=== PATIENT | female | born 1950 | race Caucasian/White ===

== ENCOUNTER → 2024-07-07 11:00 | Outpatient (REF) | payer OTHER, SELFPAY | LOC: HWRCS 11:00 | PROVIDERS: ATTENDING PHYSICIAN Internal Medicine Cardiovascular Disease; FAMILY PHYSICIAN Internal Medicine | DX: I42.8 Other cardiomyopathies (principal); I44.7 Left bundle-branch block, unspecified; I50.32 Chronic diastolic (congestive) heart failure | CPT/HCPCS: 93306 ==

== ENCOUNTER → 2024-09-01 08:54 | Outpatient (REF) | payer OTHER, SELFPAY | LOC: HWWDC 08:54 | PROVIDERS: ATTENDING PHYSICIAN Internal Medicine | DX: Z12.31 Encounter for screening mammogram for malignant neoplasm of breast (principal) | CPT/HCPCS: 77063; 77067 ==

== ENCOUNTER → 2024-09-15 10:02 | Outpatient (REF) | payer OTHER, SELFPAY | LOC: WDC 10:02 | PROVIDERS: ATTENDING PHYSICIAN Internal Medicine | DX: R92.8 Other abnormal and inconclusive findings on diagnostic imaging of breast (principal) | CPT/HCPCS: 77061; 77065 ==

== ENCOUNTER → 2025-03-02 11:53 | Outpatient (REF) | payer OTHER, SELFPAY | LOC: WDC 11:53 | PROVIDERS: ATTENDING PHYSICIAN Internal Medicine | DX: R92.8 Other abnormal and inconclusive findings on diagnostic imaging of breast (principal) | CPT/HCPCS: 77061; 77065 ==

== ENCOUNTER 2025-07-14 17:58 | Inpatient (IN) | payer OTHER, SELFPAY ==
[2025-07-14] VITALS (8 sets, daily range): BP systolic 106–124; BP diastolic 64–89; BMI 27.8
[2025-07-14 15:09] LABS: Albumin 4.2 g/dl (3.5-5.0)
[2025-07-14 15:10] LABS: Hematocrit 43.4 % (37.0-47.0); Hemoglobin 15.0 g/dL (12.0-16.0); Mean Corp Hgb Conc. 34.6 g/dL (33.0-37.0); Mean Corpuscular Volume 84.3 fL (81.0-99.0); Nucleated Red Blood Cells % 0 %; Platelet Count 293 10^3/uL (130-400); Red Cell Dist. Width 12.6 % (11.5-14.5)
[2025-07-14 15:43] LABS: ALT (SGPT) 23 U/L (0-35); AST (SGOT) 28 U/L (14-36); Alkaline Phosphatase 90 U/L (38-126); Blood Urea Nitrogen 9 mg/dl (7-17); Calcium 9.1 mg/dl (8.4-10.2); Carbon Dioxide 25 mmol/L (22-30); Chloride 102 mmol/L (98-107); Glucose 135 mg/dl (70-99); Potassium 3.8 mmol/L (3.5-5.1); Sodium 133 mmol/L (135-145); Total Protein 7.0 g/dl (6.3-8.2); eGFR > 60.00
--- NOTE | 2025-07-14 15:44 | CON.CAR ---
Addendum entered and electronically signed by Doyle Garcia MD 07/14/25 16:51:
I saw and examined the patient.
The DAY CARE ATTENDANT or PA's note was reviewed and I agree with the note.
Comment: General: Well developed, well nourished in NAD.
Neck: Supple, no JVD, HJR, carotids +2 B/L, no bruits bilaterally.
Heart: Non displaced PMI, irregular in, no murmurs, No S3, S4, no rubs.
Lungs: Clear to auscultation bilaterally, no wheeze, rhonchi, rubs bilaterally,
normal expiratory phase.
Abdomen: Normal bowel sounds, soft, non-tender, non-distended.
Extremities: No clubbing, cyanosis or edema bilaterally.
Neuro: Grossly nonfocal, awake, alert and oriented x3.
Aneta is a history of nonischemic cardiomyopathy with ejection fraction 40 to 45%, status post Medtronic BiV ICD, PAF status post PVI in 2013, left bundle branch block, hypothyroidism, PMR, hyperlipidemia. She presents with palpitations and A-fib.
She had a 5-hour episode in March 2025 which was the first episode she had an of A-fib in years. She also had A-fib versus A. tach last evening which spontaneously resolved. She then had recurrence of A-fib and came to the ER. She has been
faithfully taking Pradaxa.
Will load with amiodarone. If remains in A-fib we will do cardioversion. Will consider redo ablation as outpt
Original Note:
Consultation
Consultation Request
Date/Time Consultation Performed: 07/14/25
Requesting Provider:
Performing Provider: Maria Antonia Sauceda PA-C for Dr. Garcia
Reason for Consultation: afib with RVR
Medical History
-
Chief Complaint: afib with RVR
History of Present Illness:
Patient is a 75 yo F with PMH of nonischemic cardiomyopathy, status post Medtronic BiV ICD with improvement in EF from 30 to 35% to 40 to 45%, paroxysmal atrial fibrillation status post PVI in 2013, left bundle branch block, hypothyroidism,
polymyalgia rheumatica, hyperlipidemia who presents to [facility] for evaluation of atrial fibrillation with RVR. She reportedly had a 5-hour episode of A-fib on 04/07/2025, which is the first episode of A-fib she has had in years. She was then noted on
device to have additional episode of A-fib versus A. tach last evening, which patient reports she did feel palpitations with, however then earlier this morning was back to normal. She then had recurrence of rapid rhythm this afternoon causing her
to come to the ER for further evaluation. She is chronically on Pradaxa.
PMH:
Nonischemic cardiomyopathy, EF 40 to 45%
History of Medtronic BiV ICD
Paroxysmal atrial fibrillation status post PVI 2013
Chronic anticoagulation with Pradaxa
Left bundle branch block, chronic
Hypothyroidism
Hyperlipidemia
PMR
Past Medical History
Past Medical History: Other (in HPI)
Social History
Tobacco: Non-Smoker
Alcohol: None
Personal:
Living: With Family
Employment: Retired
Family History
Family History: Adopted
Allergies / Home Medications
Allergy/AdvReac Type Severity Reaction Status Date / Time
Mfwptcx-IQS-CyT Reductase Allergy Unknown Verified 07/14/25 14:45
Inhibitor
�Medication �Instructions �Recorded �Confirmed �Type
levothyroxine 112 mcg tablet 100 mcg PO .DAILYMONDAY-SATURDA 03/03/08 12/14/22 History
Thyroid
levothyroxine 112 mcg tablet 200 mcg PO .QSUNDAY Thyroid 12/15/16 12/14/22 History
venlafaxine 150 mg 150 mg PO DAILY Depression 12/15/16 12/14/22 History
capsule,extended release 24 hr
(Effexor XR)
calcium carbonate 500 mg PO DAILY Supplement 10/17/19 12/14/22 History
rivaroxaban 20 mg tablet (Xarelto) 20 mg PO DAILY #20 tabs 06/14/22 12/14/22 Rx
ergocalciferol (vitamin D2) 1,000 1,000 unit PO DAILY 12/14/22 12/14/22 History
unit capsule
sacubitril 49 mg-valsartan 51 mg 1 tab PO BID 12/14/22 12/14/22 History
tablet (Entresto)
carvedilol 6.25 mg tablet 6.25 mg PO BID #180 tabs 12/15/22 Rx
furosemide 40 mg tablet 40 mg PO DAILY #90 tabs 12/15/22 Rx
spironolactone 25 mg tablet 12.5 mg (1/2 x 25 mg) PO DAILY #90 12/15/22 Rx
tabs
Review of Systems
-
History Source: Patient and Family
All other systems: Negative unless noted
Physical Exam
Vital Signs
Temp Pulse Resp BP Pulse Ox
98.1 F 132 18 109/81 97
07/14/25 14:46 07/14/25 14:46 07/14/25 14:46 07/14/25 14:46 07/14/25 14:46
Lab Results
07/14/25 14:55
07/14/25 14:55
Physical Exam
General: No Apparent Distress and Comfortable
HEENT: Normocephalic, Anicteric and Moist Mucous Membranes
Respiratory: Clear and Non Labored Respirations
Cardiac: S1/S2 and Irregular Rhythm
GI: Soft, Non Tender, Non Distended and Normal Bowel Sounds
Musculoskeletal: No Clubbing, No Cyanosis and No Edema
Skin: Warm and Dry
Neuro: AO x 3
Impression / Plan
-
Primary Fund Accounting Manager: Dr. ALEKSANDER Arreola
Assessment:
Presentation with paroxysmal afib with RVR
Nonischemic cardiomyopathy, EF 40 to 45%
History of Medtronic BiV ICD
Paroxysmal atrial fibrillation status post PVI 2013, recent recurrence on device interrogation
Chronic anticoagulation with Pradaxa
Left bundle branch block, chronic
Hypothyroidism
Hyperlipidemia
PMR
ECHO 07/07/2024: EF 40 to 45%, mild concentric LVH, mild MR, mild MAC, normal right heart with ICD leads noted
Plan:
- Patient presents in A-fib with RVR. Upon review of office correspondence, patient was noted to have episode of rapid A-fib last evening then converted to sinus rhythm this morning, and then was back in A-fib with RVR this afternoon prompting
arrival to ER.
- Aside from feeling fatigued with activity, she is asymptomatic, denies palpitations
- She is without evidence of acute CHF, denies lower extremity edema, weight gain. She is chronically on Lasix 20 mg daily and Farxiga
- Discussed options with patient. Would favor initiation of antiarrhythmic drug loading given that she is paroxysmal. Will plan to initiate amiodarone 400 mg 3 times daily overnight, and then decrease dose upon discharge. Follow QTc by EKG
- For possible cardioversion in a.m. if she remains in rapid A-fib, hopefully converts to sinus rhythm overnight
- Would plan for amiodarone as short-term bridge to EP evaluation for repeat ablation. Last was in 2013 without known recurrences until March 2025
- continue OP coreg, entresto, spironolactone
- Continue Pradaxa, no missed doses as an outpatient
- check TSH
- Repeat echo, last from 06/2024 with EF 40 to 45% which was improved compared to prior with EF 30 to 35% before RELATIONSHIP ASSOCIATE-D was placed
- She is scheduled for follow-up with Dr. Arreola 07/21/2025
- Discussed with ER physician and resident. Discussed with patient and at bedside
Data Reviewed
-
EKG: Tracing Personally Visualized and interpreted
Medical Tests (Nuc Med, Echo etc): Report Reviewed by me
Labs: Labs Reviewed by me
Old Records: Reviewed
--- NOTE | 2025-07-14 16:05 | ED.GENMED ---
ED Provider Triage
<Tucker Hunt MD, Resident - Last Filed: 07/14/25 16:30>
-
Patient seen by provider in Triage?: Seen in Triage
History of Present Illness
<Tucker Hunt MD, Resident - Last Filed: 07/14/25 16:30>
General
Chief Complaint: Heart Rate Problem
Source: patient
Exam Limitations: none
Time Seen by Provider: 07/14/25 15:28
History of Present Illness
History of Present Illness:
75 year old female who presented to ED after her cardiology office told her she was in Afib since midnight yesterday. Since yesterday she has been having palpitations, shortness of breath on exertion, and dizziness. She was diagnosed with afib 10
years ago, since then has had 2 cardioversions, and 1 ablation. Currently on cavediolol and xarelto. consistent with medications. No chest pain, syncope, weakness, numbness, speech difficulties. No recent falls or bleeding episodes. No smoking,
occasionally drinks alcohol, no stimulant use. Has a history of hypertension, hypothyroidism, and heart failure with reduced ejection fraction.
Past History
<Tucker Hunt MD, Resident - Last Filed: 07/14/25 16:30>
Past History
ED Past Medical History: Arrthythmia (Atrial fib), Hypercholesterolemia and Hypothyroidism
ED Past Surgical History: None
Patient has exhibited threatening behavior?: No
PSI?: No
Social History
Tobacco: Non-smoker
Alcohol: Occasional
Personal:
Living: with family
Family History
Family History: Unable to obtain
Review of Systems
<Tucker Hunt MD, Resident - Last Filed: 07/14/25 16:30>
Review of Systems
All Other Systems: ROS reviewed and negative except as documented in HPI and ROS
Phy Exam
<Tucker Hunt MD, Resident - Last Filed: 07/14/25 16:30>
General Physical Exam
General Presentation: well appearing and no apparent distress
Cardiovascular Exam
Cardiovascular Exam: no edema, no JVD, no murmur, irregularly irregular and tachycardia (telemetry shows a rate of 133)
Pulmonary Exam
Pulmonary Exam: lungs clear, no respiratory distress, no rales and no crackles
Gastrointestinal Exam
Gastrointestinal Exam: normal bowel sounds, non tender, soft and non distended
Neurological Exam
Neurological Exam: alert, oriented x3, no motor deficits, normal reflexs, no sensory deficits and speech normal
Course
<Tucker Hunt MD, Resident - Last Filed: 07/14/25 16:30>
Orders/Labs/Results
Orders:
Orders
07/14/25 14:38
Electrocardiogram (*1) Urgent
Reason for Study: Atrial Fibrillation
EKG- Treatment ONCE
07/14/25 14:55
Complete Blood Count/With Diff Urgent
Comprehensive Metabolic Panel Urgent
07/14/25 15:52
Add On- LAB Routine
Tests Added?: TSH with reflex to free T4
07/14/25 16:15
Add On- LAB Urgent
Tests Added?: Mg, TSH reflex to free t4
Abnormal Lab Results
07/14/25
14:55
Absolute Monos (auto) 0.7 H 10^3/uL
(0.1-0.6)
Eosinophils % 6.6 H %
(0-6)
Sodium 133 L mmol/L
(135-145)
Glucose 135 H mg/dl
(70-99)
07/14/25 14:55
07/14/25 14:55
Vital Signs
Initial and Last Documented VS:
Initial Vital Signs
Temp Pulse Resp BP Pulse Ox
98.1 F 132 18 109/81 97
07/14/25 14:46 07/14/25 14:46 07/14/25 14:46 07/14/25 14:46 07/14/25 14:46
Last Documented Vital Signs
Temp Pulse Resp BP Pulse Ox
98.1 F 135 20 106/75 97
07/14/25 14:46 07/14/25 16:15 07/14/25 16:15 07/14/25 16:00 07/14/25 16:15
<Evans Dominguez, DO - Last Filed: 07/14/25 16:24>
Orders/Labs/Results
Orders:
Orders
07/14/25 14:38
Electrocardiogram (*1) Urgent
Reason for Study: Atrial Fibrillation
EKG- Treatment ONCE
07/14/25 14:55
Complete Blood Count/With Diff Urgent
Comprehensive Metabolic Panel Urgent
07/14/25 15:52
Add On- LAB Routine
Tests Added?: TSH with reflex to free T4
07/14/25 16:15
Add On- LAB Urgent
Tests Added?: Mg, TSH reflex to free t4
Abnormal Lab Results
07/14/25
14:55
Absolute Monos (auto) 0.7 H 10^3/uL
(0.1-0.6)
Eosinophils % 6.6 H %
(0-6)
Sodium 133 L mmol/L
(135-145)
Glucose 135 H mg/dl
(70-99)
07/14/25 14:55
07/14/25 14:55
Vital Signs
Initial and Last Documented VS:
Initial Vital Signs
Temp Pulse Resp BP Pulse Ox
98.1 F 132 18 109/81 97
07/14/25 14:46 07/14/25 14:46 07/14/25 14:46 07/14/25 14:46 07/14/25 14:46
Last Documented Vital Signs
Temp Pulse Resp BP Pulse Ox
98.1 F 135 20 106/75 97
07/14/25 14:46 07/14/25 16:15 07/14/25 16:15 07/14/25 16:00 07/14/25 16:15
<Tucker Hunt MD, Resident - Last Filed: 07/14/25 16:30>
MDM/Problems Addressed
Differential Diagnosis Includes:
Afib with rapid ventricular rate
MDM/Problems Addressed:
75 y/o female presents with Afib after her cardiology group told her she has been in afib since midnight associated with palpitations, dizziness, and shortness of breath ( has since subsided since admission). On telemetry her rate is 133. EKG shows
atrial fibrillation with rapid ventricular response. CMP and CBC are benign. TSH and Mag pending. Cardiology was consulted and want to admit her overnight and administer an amiodarone bolus, so will admit patient.
<Tucker Hunt MD, Resident - Last Filed: 07/14/25 16:30>
*Pulse Oximetry
SaO2: 95
Oxygen Mode of Delivery: Room air
Patient hypoxic: no
*Critical Care Note
Total Time (30-74mins, 75-104mins- exclusive of procedures): Not Applicable
ED Attending Note
<Tucker Hunt MD, Resident - Last Filed: 07/14/25 16:30>
-
Portions of this chart may have been created with voice recognition software.� Occasional wrong word or��sound alike� substitutions may have occurred due to the inherent limitations of voice recognition software.
<Evans Dominguez, DO - Last Filed: 07/14/25 16:24>
ED Attending Note
Patient seen and examined by attending physician: Yes
I performed a history and physical exam of patient and discussed management with resident, I reviewed resident's note and agree with documented findings and plan of care.: Yes
ED Attending Note:
I evaluated patient at bedside. I spoke to PA with cardiology who recommends oral amiodarone during admission to hospitalist service. The patient is in rapid atrial fibrillation primarily with rates in the 130s. Consider cardioversion however the
patient goes in and out of A-fib and cardiology recommends Amio loading.
-
Portions of this chart may have been created with voice recognition software.� Occasional wrong word or��sound alike� substitutions may have occurred due to the inherent limitations of voice recognition software.
Discharge Plan
Departure
Patient Disposition: Admit
Date of Disposition: 07/14/25
Time of Disposition: 16:21
Presentation/result/management discussed w/ accepting MD/DO: Hospitalist
Discharge Problem:
Atrial fibrillation with RVR
Prescriptions:
No Action
levothyroxine 112 MCG tablet
100 mcg PO .DAILYMONDAY-SATURDA
venlafaxine [Effexor XR] 150 MG capsule,extended release 24hr
150 mg PO DAILY
levothyroxine 112 MCG tablet
200 mcg PO .QSUNDAY
calcium carbonate 500 MG tablet
500 mg PO DAILY
Xarelto 20 mg tablet
20 mg PO DAILY Qty: 20 1RF
ergocalciferol (vitamin D2) 1,000 unit Capsule
1,000 unit PO DAILY
Entresto 49-51 mg Tablet
1 tab PO BID
furosemide 40 mg Tablet
40 mg PO DAILY Qty: 90 5RF
carvedilol 6.25 mg Tablet
6.25 mg PO BID Qty: 180 5RF
spironolactone 25 mg Tablet
12.5 mg PO DAILY Qty: 90 5RF
Referrals:
Deon Fischer DO [Family Provider, Internal Medicine]
Interventions
Interventions:
*Risk Screen - Suicide Last Done: 07/14/25 14:46
*General Assessment Last Done: 07/14/25 14:46
*Neglect/Abuse Screening Last Done: 07/14/25 14:46
*ED COVID-19 Vaccine History Last Done: 07/14/25 15:21
ED- Pulmonary Assessment Last Done: 07/14/25 16:01
ED- Cardiac Assessment Last Done: 07/14/25 16:01
Discharge Date and Time
Print Language: MONTSERRATIAN
[2025-07-14] MEDS: PACERONE 400 MG PO ×2 (16:39→22:25)
--- NOTE | 2025-07-14 16:56 | HPS.HSE ---
Family Physician
-
Family Physician: Deon Fischer
Chief Complaint
-
Persistent atrial fibrillation
History of Present Illness
75-year-old female with past medical history of paroxysmal atrial fibrillation with prior PVI 2013 on Pradaxa, hyperlipidemia, hypothyroidism, nonischemic cardiomyopathy(EF 40 to 45%), post BiV ICD, polymyalgia rheumatica now presents for persistent
atrial fibrillation with RVR. Patient was advised from orthodontist vice president to come to the hospital after having notable A-fib with RVR. Patient had 5-hour episode of atrial fibrillation on 04/07/2025, first episode in years. Last evening was reporting
palpitations and had possible additional episode atrial fibrillation versus atrial tach. Rhythm became intermittent with atrial fibrillation as well as sinus, returning back to RVR this afternoon prompting hospital evaluation. Occasionally drinks,
no stimulant use. Otherwise denies fever, chills, nausea, vomiting, diarrhea.
Medical History
Past Medical History
Past Medical History: Reports Other (paroxysmal atrial fibrillation with prior PVI 2013 on Pradaxa, hyperlipidemia, hypothyroidism, nonischemic cardiomyopathy(EF 40 to 45%), post BiV ICD, polymyalgia rheumatica)
Past Surgical History: Reports None
Social History
Tobacco: Non-smoker
Alcohol: Occasional
Personal:
Living: With Family
Family History
Family History: Not pertinent
Allergies / Home Medications
Allergies reflects when Allergies were last updated in [facility].
Home Medications with original date entered in [facility]
Allergy/Medication List:
Allergies
Allergy/AdvReac Type Severity Reaction Status Date / Time
Zusxnld-GGX-AyV Reductase Allergy Unknown Verified 07/14/25 14:45
Inhibitor
Home Medications
levothyroxine 112 mcg tablet 100 mcg PO .DAILYMONDAY-SATURDA Thyroid 03/03/08
levothyroxine 112 mcg tablet 200 mcg PO .QSUNDAY Thyroid 12/15/16
venlafaxine 150 mg capsule,extended release 24 hr (Effexor XR) 150 mg PO DAILY Depression 12/15/16
calcium carbonate 500 mg PO DAILY Supplement 10/17/19
rivaroxaban 20 mg tablet (Xarelto) 20 mg PO DAILY #20 tabs 06/14/22
ergocalciferol (vitamin D2) 1,000 unit capsule 1,000 unit PO DAILY 12/14/22
sacubitril 49 mg-valsartan 51 mg tablet (Entresto) 1 tab PO BID 12/14/22
carvedilol 6.25 mg tablet 6.25 mg PO BID #180 tabs 12/15/22
furosemide 40 mg tablet 40 mg PO DAILY #90 tabs 12/15/22
spironolactone 25 mg tablet 12.5 mg (1/2 x 25 mg) PO DAILY #90 tabs 12/15/22
Review of Systems
-
History Source: Patient
A 12 point ROS was completed and negative except as noted: Yes
Physical Exam
Vital Signs
Vital Signs
Temp Pulse Resp BP Pulse Ox
98.1 F 135 20 106/75 97
07/14/25 14:46 07/14/25 16:15 07/14/25 16:15 07/14/25 16:00 07/14/25 16:15
Physical Exam
General: Well Developed and Well Nourished
HEENT: NormoCephalic
Respiratory: Clear
Cardiac: Irregular Rhythm
GI: Soft and Non Tender
Musculoskeletal: No Clubbing
Skin: Warm
Neuro: AO x 3
Hematologic/Lymphatic: No Lymphadenopathy
Psych: Calm
Laboratory Results
-
07/14/25 14:55
07/14/25 14:55
Laboratory Results
Total Bilirubin 1.1 mg/dl (0.2-1.3) 07/14/25 14:55
AST 28 U/L (14-36) 07/14/25 14:55
ALT 23 U/L (0-35) 07/14/25 14:55
Alkaline Phosphatase 90 U/L (38-126) 07/14/25 14:55
Data Reviewed
-
Lab Data: Labs Reviewed by me
Impression/Plan
-
IMPRESSION:
75-year-old female with past medical history of paroxysmal atrial fibrillation with prior PVI 2013 on Pradaxa, hyperlipidemia, hypothyroidism, nonischemic cardiomyopathy(EF 40 to 45%), post BiV ICD, polymyalgia rheumatica now presents for persistent
atrial fibrillation with RVR.
PLAN:
Paroxysmal A-fib with RVR
� Continue Pradaxa
� Amiodarone loading
� Possible cardioversion in the morning if remaining in rapid A-fib
� Possible ablation outpatient,
� Follow-up TSH with reflex free T4
#Nonischemic cardiomyopathy
� Post BiV ICD
� EF 40 to 45%
� Continue outpatient Coreg, Entresto, Lasix, Farxiga, spironolactone
� Follow-up TSH
� Repeat echo, last from 06/2024 with EF 40 to 45% which was improved compared to prior with EF 30 to 35% before SECURITIES TRADER-D was placed
#Hypothyroidism
� Follow-up TSH with reflex free T4
� Continue Synthroid
#Hyperlipidemia
� Continue statin
#Polymyalgia rheumatica
#DVT prophylaxis
� Pradaxa
[2025-07-14 17:21] LABS: Magnesium 1.7 mg/dl (1.6-2.3)
[2025-07-14] MEDS: COREG 6.25 MG PO (20:44)
[2025-07-14] MEDS: ENTRESTO 24 MG/26 MG 1 TAB PO (20:44)
[2025-07-14] MEDS: PRADAXA 150 MG PO (20:44)
--- NOTE | 2025-07-14 20:59 | PTCARENOTE ---
Received pt from ED into room 2241. Pt ambulated self and denies any lightheadedness or dizziness. Pt does c/o weakness and fatigue. Tele monitor shows Afib RVR w/ BBBC and occasionally Vpaced. HR in the 110-130's. Pt denies any chest pain or
discomfort. BP stable, pulse ox sating 96% RA. Lungs clear throughout. Patient instructed to remain NPO at midnight for possible cardioversion on 07/15. Med rec updated. Oriented pt to room, call cesar in reach.
[2025-07-15] VITALS (14 sets, daily range): BP systolic 83–116; BP diastolic 46–76; PULSE 95–113; BMI 27.8
[2025-07-15] MEDS: SYNTHROID 100 MCG PO (04:28)
[2025-07-15 04:42] LABS: Hematocrit 44.8 % (37.0-47.0); Hemoglobin 15.5 g/dL (12.0-16.0); Mean Corp Hgb Conc. 34.6 g/dL (33.0-37.0); Mean Corpuscular Volume 86.0 fL (81.0-99.0); Platelet Count 296 10^3/uL (130-400); Red Cell Dist. Width 12.6 % (11.5-14.5)
--- NOTE | 2025-07-15 05:19 | W.PN.UPDATE ---
Update Note
Progress Note Update
Patient reported lightheaded felt like pass out while she in bed to the bathroom. Back to be baseline in bed and denies any symptoms while in bed. BP 113/73, hr 101, RR 18.
Will start orthostatic vital signs
[2025-07-15 05:47] LABS: ALT (SGPT) 21 U/L (0-35); AST (SGOT) 21 U/L (14-36); Albumin 4.0 g/dl (3.5-5.0); Alkaline Phosphatase 88 U/L (38-126); Blood Urea Nitrogen 10 mg/dl (7-17); Calcium 9.4 mg/dl (8.4-10.2); Carbon Dioxide 24 mmol/L (22-30); Chloride 104 mmol/L (98-107); Estimated Creatinine Clearance 76 ml/min; Glucose 106 mg/dl (70-99); Magnesium 1.9 mg/dl (1.6-2.3); Potassium 3.6 mmol/L (3.5-5.1); Sodium 135 mmol/L (135-145); Total Protein 6.7 g/dl (6.3-8.2); eGFR > 60.00
--- NOTE | 2025-07-15 05:48 | PTCARENOTE ---
Patient rang call cesar and notified staff that after sitting on the toilet..she felt like she was going to pass out. Denies any straining. She said she got lightheaded and had the sensation of being hot and cold at the same time. Vitals obtained
while lying back in bed. BP (R) arm 113/73 and (L) arm 116/68. HR remains Afib and occasionally Vpaced.
Brenda Bah SECY notified. Instructed RN to obtain a set of orthos. Orthos completed--see worklist. While going from a sitting to standing position pt reports feeling lightheaded, and sat before the BP had finished. SECY made aware, no further
orders obtained at this time. This RN instructed patient to remain bedrest till further notice. Pt verbalized understanding. Patient currently laying in bed, and reading Afib/CHF education packets. Call cesar within reach.
--- NOTE | 2025-07-15 07:50 | PTCARENOTE ---
Assumed care of pt from prev nsg shift; Pt AAOx3 w/no c/o CP or SOB. Pt w/VSS stable w/HR in the 80's-90's w/BP 100/69 this AM. Pt does get tachycardic in the 110'-120's w/activity & reports feeling 'a little lightheaded' when ambulating. Pt advised
to ring for assistance w/ambulation. Pt refusing bed alarm. Pt is V paced w/underlying Afib on telemetry monitoring. Pt NPO for prob cardioversion today. No addtl needs at this time. Plan of care ongoing.
[2025-07-15] MEDS: ENTRESTO 24 MG/26 MG 1 TAB PO ×2 (08:45→20:19)
[2025-07-15] MEDS: PRADAXA 150 MG PO ×2 (08:45→20:19)
[2025-07-15] MEDS: COREG 6.25 MG PO (08:45)
[2025-07-15] MEDS: PACERONE 400 MG PO (08:45)
--- NOTE | 2025-07-15 08:50 | PTCARENOTE ---
Report given to Jodi in EP lab; pt transported via to EP lab for CV.
[2025-07-15] MEDS: ALDACTONE 12.5 MG PO (12:07)
[2025-07-15] MEDS: EFFEXOR XR 150 MG PO (12:07)
[2025-07-15] MEDS: LASIX 20 MG PO (12:07)
--- NOTE | 2025-07-15 12:24 | PTCARENOTE ---
Rec'd report from Jodi in EP lab & rec'd pt back AAOX3 w/no c/o CP. Pt's VSS w/HR now in the 70'. Pt is now VPaced w/underlying SR on telemetry monitoring.
--- NOTE | 2025-07-15 12:35 | W.PN.CARDCBS ---
Addendum entered and electronically signed by Doyle Garcia MD 07/15/25 12:54:
I saw and examined the patient.
The TRAFFIC PERSONNEL SUPERVISOR or PA's note was reviewed and I agree with the note.
Comment: General: Well developed, well nourished in NAD.
Neck: Supple, no JVD, HJR, carotids +2 B/L, no bruits bilaterally.
Heart: Non displaced PMI, RRR, no murmurs, No S3, S4, no rubs.
Lungs: Clear to auscultation bilaterally, no wheeze, rhonchi, rubs bilaterally,
normal expiratory phase.
Extremities: No clubbing, cyanosis or edema bilaterally.
Neuro: Grossly nonfocal, awake, alert and oriented x3.
Status post cardioversion to sinus rhythm. She had an episode of lightheadedness earlier today. Will check orthostatics. Will continue amiodarone 200 twice daily for 4 weeks then decrease to 20 mg daily. Check repeat echo. Outpatient EP eval to
discuss repeat ablation.
Original Note:
Today's Communication / Plan
-
s/p successful CV 07/15
amiodarone 200mg BID for 4 weeks then decrease to 200mg daily
pradaxa
repeat echo
ambulate
OP EP eval to discuss repeat ablation
likely for DC later today
Impression / Plan
-
Primary Sail Finisher Hand: Dr. ALEKSANDER Arreola
Assessment:
Presentation with paroxysmal afib with RVR
Nonischemic cardiomyopathy, EF 40 to 45%
History of Medtronic BiV ICD
Paroxysmal atrial fibrillation status post PVI 2013, recent recurrence on device interrogation
Chronic anticoagulation with Pradaxa
Left bundle branch block, chronic
Hypothyroidism
Hyperlipidemia
PMR
ECHO 07/07/2024: EF 40 to 45%, mild concentric LVH, mild MR, mild MAC, normal right heart with ICD leads noted
Plan:
- Patient presents in A-fib with RVR. Upon review of office correspondence, patient was noted to have episode of rapid A-fib last evening then converted to sinus rhythm this morning, and then was back in A-fib with RVR 07/14 afternoon resulting in
admission
- started on amiodarone 400mg TID.
- underwent successful CV 07/15/25
- EKG asensed vpaced rhythm
- plan for amiodarone 200mg BID for 4 weeks then decrease to 200mg daily
- Would plan for amiodarone as short-term bridge to EP evaluation for repeat ablation. Last was in 2013 without known recurrences until March 2025
- continue OP coreg, entresto, spironolactone
- Continue Pradaxa, no missed doses as an outpatient
- TSH WNL
- Repeat echo, last from 06/2024 with EF 40 to 45% which was improved compared to prior with EF 30 to 35% before ANCHOR TACKER-D was placed
- overnight noted to have episode of lightheadedness while in bathroom. ortho VS this AM were negative however patient did complain of some dizziness with standing. advised to be cautious with change in positions. ambulate prior to DC
- will plan for DC later today
- She is scheduled for follow-up with Dr. Arreola 07/21/2025
- Discussed with patient and daughter at bedside. d/w nursing
Progress Note - Sail Finisher Hand
Subjective
Date of Service: July 15, 2025
Reports feeling great s/p CV. Eager for discharge
Objective
Labs:
07/15/25 04:22
07/15/25 04:22
Labs
Hgb 15.5 g/dL (12.0-16.0) 07/15/25 04:22
Hct 44.8 % (37.0-47.0) 07/15/25 04:22
Plt Count 296 10^3/uL (130-400) 07/15/25 04:22
Sodium 135 mmol/L (135-145) 07/15/25 04:22
Potassium 3.6 mmol/L (3.5-5.1) 07/15/25 04:22
BUN 10 mg/dl (7-17) 07/15/25 04:22
Creatinine 0.7 mg/dL (0.6-1.0) 07/15/25 04:22
Glucose 106 mg/dl (70-99) H 07/15/25 04:22
Vital Signs and I&O:
Vital Signs
Temp Pulse Resp BP Pulse Ox
97.5 F 68 18 100/61 98
07/15/25 11:56 07/15/25 12:00 07/15/25 11:56 07/15/25 11:57 07/15/25 11:56
Vital Signs
Temp Pulse Resp BP Pulse Ox
97.5 F 68 18 100/61 98
07/15/25 11:56 07/15/25 12:00 07/15/25 11:56 07/15/25 11:57 07/15/25 11:56
Intake & Output
07/13/25 07/14/25 07/15/25 07/16/25
07:59 07:59 07:59 07:59
Intake Total 480 / 480 360 / 360
Balance 480 / 480 360 / 360
Physical Exam
Physical Exam
GEN: No distress, awake, alert, oriented x3
HEENT: supple, anicteric, mmm, eomi
LUNGS: CTA B/L, no wheezes/rales
CV: Reg, S1/S2, no murmur
ABD: soft, BS+, NT/ND
EXT: No cyanosis, clubbing, edema
NEURO: Gross non-focal
SKIN: Warm, pink, dry. No rash
--- NOTE | 2025-07-15 13:05 | CM ---
Chart reviewed. Patient is independent of ADLS, lives with her in a 2 STH, 2 EMETERIO, 0 DME. Plan is for the patient to return home. CM to follow
--- NOTE | 2025-07-15 14:00 | CARDSERVLU ---
Echocardiogram with [facility] completed after protocol screening completed. Allergies verified.
Patent IV site: ___L AC__
IV site flushed with 0.9% NaCl pre and post administration.
Diluted bolus method utilized to enhance visualization of ventricular moreau.
Total volume given: __2.5__ mL
Patient tolerated all procedures well without complications.
--- NOTE | 2025-07-15 14:32 | W.PN.HOSP.TC ---
Today's Communication/Plan
-
Cardioverted today
Cont amio
monitor on tele
ECHO
Assessment / Plan
Assessment / Plan
Physical Exam
General: Well Developed and Well Nourished
HEENT: NormoCephalic
Respiratory: Clear
Cardiac: Irregular Rhythm
GI: Soft and Non Tender
Musculoskeletal: No Clubbing
Skin: Warm
Neuro: AO x 3
Hematologic/Lymphatic: No Lymphadenopathy
Psych: Calm
Paroxysmal A-fib with RVR
� Continue Pradaxa
� Successfully cardioverted to sinus rhythm 07/15
� Follow-up orthostatics, had an episode of lightheadedness
- Continue amiodarone 200 mg twice daily for 4 weeks, then decrease to 200 mg daily
- Repeat echo
� Outpatient EP eval to discuss repeat ablation
� Continue monitoring on telemetry today
�TSH within normal limits
#Nonischemic cardiomyopathy
� Post BiV ICD
� EF 40 to 45%
� Continue outpatient Coreg, Entresto, Lasix, Farxiga, spironolactone
� Repeat echo, last from 06/2024 with EF 40 to 45% which was improved compared to prior with EF 30 to 35% before CLIENT SERVICE AND CONSULTING MANAGER-D was placed
�Repeat echo
#Hypothyroidism
� Follow-up TSH with reflex free T4
� Continue Synthroid
#Hyperlipidemia
� Continue statin
#Hyponatremia
� Mild
� Continue to monitor
#Polymyalgia rheumatica
#DVT prophylaxis
� Pradaxa
Total time spent on today's encounter was 51 minutes which included time spent in counseling the patient/family regarding diagnosis and treatment plan as listed above, goals of care, and symptom management. Case was discussed with nursing staff,
specialists, and care coordinators/case management. All labs and imaging personally reviewed by me. Remainder the time spent in detailed review of previous records, lab data, imaging, and other medical provider documentation.
Anticipated Discharge: Today
Subjective/Interval History
-
Date of Service: July 15, 2025
Cardioverted today, back in sinus rhythm
Objective Data
-
Labs:
Laboratory Results
07/15/25
04:22
WBC 7.4
Hgb 15.5
Hct 44.8
Plt Count 296
Sodium 135
Potassium 3.6
Chloride 104
Carbon Dioxide 24
BUN 10
Creatinine 0.7
Glucose 106 H
Calcium 9.4
Total Bilirubin 1.0
AST 21
ALT 21
Alkaline Phosphatase 88
Vital Signs:
Vital Signs
Temp Pulse Resp BP Pulse Ox
97.5 F 68 18 100/61 98
07/15/25 11:56 07/15/25 12:00 07/15/25 11:56 07/15/25 11:57 07/15/25 11:56
I&O
07/14/25 07/15/25 07/16/25
06:59 06:59 06:59
Intake Total 480 / 480 360 / 360
Balance 480 / 480 360 / 360
Review of Systems
-
History Source: Patient
All other systems: Not reviewed unless documented
Data Reviewed
-
Labs: Labs Reviewed by me
[2025-07-15] MEDS: PACERONE PO (16:40)
[2025-07-15] MEDS: PACERONE 200 MG PO (20:20)
[2025-07-15] MEDS: COREG PO (23:11)
[2025-07-16 04:13] VITALS: BP 100/60
[2025-07-16 04:20] VITALS: BMI 28.1
[2025-07-16] MEDS: SYNTHROID 100 MCG PO (04:26)
[2025-07-16 04:49] LABS: Hematocrit 41.1 % (37.0-47.0); Hemoglobin 14.1 g/dL (12.0-16.0); Mean Corp Hgb Conc. 34.3 g/dL (33.0-37.0); Mean Corpuscular Volume 86.3 fL (81.0-99.0); Platelet Count 263 10^3/uL (130-400); Red Cell Dist. Width 12.7 % (11.5-14.5)
[2025-07-16 05:06] LABS: Blood Urea Nitrogen 10 mg/dl (7-17); Calcium 9.4 mg/dl (8.4-10.2); Carbon Dioxide 26 mmol/L (22-30); Chloride 104 mmol/L (98-107); Estimated Creatinine Clearance 76 ml/min; Glucose 103 mg/dl (70-99); Magnesium 1.9 mg/dl (1.6-2.3); Potassium 3.6 mmol/L (3.5-5.1); Sodium 135 mmol/L (135-145); eGFR > 60.00
--- NOTE | 2025-07-16 06:41 | PTCARENOTE ---
Pt V paced on monitor, Coreg held for SBP 94. Pt denies dizziness or lightheadedness. Pt independent in the room, call cesar within reach
--- NOTE | 2025-07-16 08:01 | W.PN.CARDCBS ---
Addendum entered and electronically signed by Loco Jack MD 07/16/25 11:34:
I saw and examined the patient.
The Dishroom Attendant's note was reviewed and I agree with the note.
Comment: Briefly, 75-year-old woman past medical history of paroxysmal atrial fibrillation and nonischemic cardiomyopathy status post CREDIT ASSOCIATE-D who presented in atrial fibrillation with rapid ventricular response
Patient underwent direct-current cardioversion 07/15/2025 to restore sinus rhythm
Plan to discharge on amiodarone for rhythm control
Continue Pradaxa for risk reduction of cardioembolic stroke
Blood pressure is marginal this morning
Hold spironolactone and add back as an outpatient if blood pressure tolerates
Otherwise continue Coreg, Entresto and Farxiga as guideline directed medical therapy
Stable for discharge from my perspective
Outpatient follow-up has been arranged
Original Note:
Today's Communication / Plan
-
BPs low overnight and evening coreg dose held. consider holding aldactone for now, reassess in OP setting
no lightheadedness
maintaining SR
continue amiodarone 200mg BID for 4 weeks then decrease to 200mg daily
plan for DC today
Impression / Plan
-
Primary Hematology Nurse: Dr. ALEKSANDER Arreola
Assessment:
Presentation with paroxysmal afib with RVR
Nonischemic cardiomyopathy, EF 40 to 45%
History of Medtronic BiV ICD
Paroxysmal atrial fibrillation status post PVI 2013, recent recurrence on device interrogation
Chronic anticoagulation with Pradaxa
Left bundle branch block, chronic
Hypothyroidism
Hyperlipidemia
PMR
ECHO 07/07/2024: EF 40 to 45%, mild concentric LVH, mild MR, mild MAC, normal right heart with ICD leads noted
Plan:
- Patient presented in afib with RVR. remote history of afib s/p PVI in 2013 without known recurrences until 03/2025.
- started on amiodarone 400mg TID.
- underwent successful CV 07/15/25
- remains in asensed vpaced rhythm on tele overnight
- plan for amiodarone 200mg BID for 4 weeks then decrease to 200mg daily
- Would plan for amiodarone as short-term bridge to EP evaluation for repeat ablation. Last was in 2013 without known recurrences until March 2025
- continue OP coreg, entresto, spironolactone. follow BPs, on low side overnight and coreg was held. no lightheadedness overnight and is feeling well. consider holding aldactone for now
- Continue Pradaxa, no missed doses as an outpatient
- TSH WNL
- Repeat echo showed continued improvement in EF, 50-55%
- will plan for DC today
- She is scheduled for follow-up with Dr. Arreola 07/21/2025
- d/w nursing
Progress Note - Hematology Nurse
Subjective
Date of Service: July 16, 2025
feeling well. no lightheadedness
Objective
Labs:
07/16/25 04:16
07/16/25 04:16
Labs
Hgb 14.1 g/dL (12.0-16.0) 07/16/25 04:16
Hct 41.1 % (37.0-47.0) 07/16/25 04:16
Plt Count 263 10^3/uL (130-400) 07/16/25 04:16
Sodium 135 mmol/L (135-145) 07/16/25 04:16
Potassium 3.6 mmol/L (3.5-5.1) 07/16/25 04:16
BUN 10 mg/dl (7-17) 07/16/25 04:16
Creatinine 0.7 mg/dL (0.6-1.0) 07/16/25 04:16
Glucose 103 mg/dl (70-99) H 07/16/25 04:16
Vital Signs and I&O:
Vital Signs
Temp Pulse Resp BP Pulse Ox
97.6 F 62 16 100/60 94
07/16/25 04:13 07/16/25 06:00 07/16/25 04:13 07/16/25 04:13 07/16/25 04:13
Vital Signs
Temp Pulse Resp BP Pulse Ox
97.6 F 62 16 100/60 94
07/16/25 04:13 07/16/25 06:00 07/16/25 04:13 07/16/25 04:13 07/16/25 04:13
Intake & Output
07/14/25 07/15/25 07/16/25 07/17/25
07:59 07:59 07:59 07:59
Intake Total 480 / 480 660 / 660
Balance 480 / 480 660 / 660
Physical Exam
Physical Exam
GEN: No distress, awake, alert, oriented x3
HEENT: supple, anicteric, mmm, eomi
LUNGS: CTA B/L, no wheezes/rales
CV: Reg, S1/S2, no murmur
ABD: soft, BS+, NT/ND
EXT: No cyanosis, clubbing, edema
NEURO: Gross non-focal
SKIN: Warm, pink, dry. No rash
[2025-07-16 08:06] VITALS: BP 98/67
[2025-07-16 09:58] VITALS: BP 102/51
[2025-07-16] MEDS: ENTRESTO 24 MG/26 MG 1 TAB PO (10:02)
[2025-07-16] MEDS: CRESTOR 10 MG PO (10:02)
[2025-07-16] MEDS: COREG 6.25 MG PO (10:03)
[2025-07-16] MEDS: PRADAXA 150 MG PO (10:03)
[2025-07-16] MEDS: EFFEXOR XR 150 MG PO (10:03)
[2025-07-16] MEDS: LASIX 20 MG PO (10:03)
[2025-07-16] MEDS: PACERONE 200 MG PO (10:03)
[2025-07-16] MEDS: FARXIGA 10 MG PO (10:03)
[2025-07-16] MEDS: ALDACTONE PO (10:04)
[2025-07-16 10:48] VITALS: BP 104/58
--- NOTE | 2025-07-16 13:18 | W.PN.HOSP.TC ---
Addendum entered and electronically signed by Nathan Belcher MD 07/16/25 16:57:
[id number]
Original Note:
Today's Communication/Plan
-
Amiodarone
Hold Aldactone
Fu PCP, Cards outpt
Assessment / Plan
Assessment / Plan
Physical Exam
General: Well Developed and Well Nourished
HEENT: NormoCephalic
Respiratory: Clear
Cardiac: Irregular Rhythm
GI: Soft and Non Tender
Musculoskeletal: No Clubbing
Skin: Warm
Neuro: AO x 3
Hematologic/Lymphatic: No Lymphadenopathy
Psych: Calm
Paroxysmal A-fib with RVR
� Continue Pradaxa
� Successfully cardioverted to sinus rhythm 07/15
- Continue amiodarone 200 mg twice daily for 4 weeks, then decrease to 200 mg daily
- Repeat echo -Ejection fraction 50 to 55%.
� Outpatient EP eval to discuss repeat ablation
� Continue monitoring on telemetry today
�TSH within normal limits
#Nonischemic cardiomyopathy
� Post BiV ICD
- Repeat echo -Ejection fraction 50 to 55%.
� Continue outpatient Coreg, Entresto, Lasix, Farxiga; hold spironolactone due to lower BPs overnight
� Repeat echo, last from 06/2024 with EF 40 to 45% which was improved compared to prior with EF 30 to 35% before PUBLIC RELATIONS ANALYST-D was placed
#Hypothyroidism
� Continue Synthroid
#Hyperlipidemia
� Continue statin
#Hyponatremia
� Mild
� Continue to monitor
#Polymyalgia rheumatica
#DVT prophylaxis
� Pradaxa
More than 30 minutes spent in discharge including
Final examination of the patient
Summarizing hospital stay
Instructions for continuing care to all relevant caregivers
Preparation of discharge records, prescriptions, and referral forms
Total time spent (in minutes): 36
Anticipated Discharge: Today
Subjective/Interval History
-
Date of Service: July 16, 2025
no acute events; in SR
Objective Data
-
Labs:
Laboratory Results
07/16/25
04:16
WBC 7.2
Hgb 14.1
Hct 41.1
Plt Count 263
Sodium 135
Potassium 3.6
Chloride 104
Carbon Dioxide 26
BUN 10
Creatinine 0.7
Glucose 103 H
Calcium 9.4
Vital Signs:
Vital Signs
Temp Pulse Resp BP Pulse Ox
98.1 F 68 14 104/58 96
07/16/25 10:47 07/16/25 11:00 07/16/25 10:47 07/16/25 10:48 07/16/25 10:47
I&O
07/15/25 07/16/25 07/17/25
06:59 06:59 06:59
Intake Total 480 / 480 660 / 660 960 / 960
Balance 480 / 480 660 / 660 960 / 960
Review of Systems
-
History Source: Patient
All other systems: Not reviewed unless documented
Data Reviewed
-
Labs: Labs Reviewed by me
--- NOTE | 2025-07-16 13:23 | W.DS.TRANS ---
DC Summary - [employer]
-
Discharge Instructions:
Sleep Apnea Risk Intermediate
Discharge Diagnosis/Procedures atrial fibrillation, cardioversion
Diet 2 Gram Sodium,Low Cholesterol
Activity As tolerated
Driving Restrictions No driving for 24 hours
Blood Work cbc and bmp in 1 week with pcp
Specialty Instructions Weigh Daily
Instructions:
Stand-Alone Forms:
Changes to Home Medications: Yes
Discharge Medications:
DC Medications w/original date entered in [facility]
venlafaxine 150 mg capsule,extended release 24 hr (Effexor XR) 150 mg PO DAILY Depression 12/15/16
carvedilol 6.25 mg tablet 6.25 mg PO BID #180 tabs 12/15/22
spironolactone 25 mg tablet 12.5 mg (1/2 x 25 mg) PO DAILY #90 tabs 12/15/22
Held on 07/16/25. Instructions: Resume on 09/09/25. until cleared by cardiology
dabigatran etexilate 150 mg capsule 150 mg PO BID Blood Clot Prevention/Tx 07/14/25
empagliflozin 10 mg tablet (Jardiance) 10 mg PO DAILY Diabetes 07/14/25
furosemide 20 mg tablet 20 mg PO DAILY Fluid Retention/Swelling 07/14/25
levothyroxine 100 mcg tablet 100 mcg PO DAILY Thyroid 07/14/25
rosuvastatin 10 mg tablet 10 mg PO DAILY High Cholesterol 07/14/25
sacubitril 24 mg-valsartan 26 mg tablet (Entresto) 1 tab PO BID Heart Failure 07/14/25
amiodarone 200 mg tablet 200 mg PO DAILY #30 tabs 07/16/25
amiodarone 200 mg tablet (Pacerone) 200 mg PO BID 30 days #60 tabs 07/16/25
Home Medication Changes
amiodarone 200 mg tablet 200 mg PO DAILY #30 tabs 07/16/25
amiodarone 200 mg tablet (Pacerone) 200 mg PO BID 30 days #60 tabs 07/16/25
Pending Results: No
--- NOTE | 2025-07-16 14:50 | PTCARENOTE ---
Pt's IV line & desk monitor D/C'd. D/C instructions discussed w/pt. Pt left w/personal personal belongings incl cell phone & racetrack steward. Pt escorted out via WC w/spouse driving her home.
== END 2025-07-16 14:52 | disposition home or self-care (01) | DRG 309 ==
LOC: IVU 17:58
PROVIDERS: Emergency Medicine; Internal Medicine; ADMITTING PHYSICIAN Internal Medicine; CONSULT PHYSICIAN Internal Medicine Cardiovascular Disease; EMERGENCY PHYSICIAN Emergency Medicine; FAMILY PHYSICIAN Internal Medicine
PROC: 5A2204Z Restoration of Cardiac Rhythm, Single (ICD-10-PCS; 2025-07-15)
DX: I48.0 Paroxysmal atrial fibrillation (principal); E87.1 Hypo-osmolality and hyponatremia; I50.22 Chronic systolic (congestive) heart failure; Z79.899 Other long term (current) drug therapy; E03.9 Hypothyroidism, unspecified; I42.8 Other cardiomyopathies; M35.3 Polymyalgia rheumatica; Z79.890 Hormone replacement therapy; E78.00 Pure hypercholesterolemia, unspecified; I11.0 Hypertensive heart disease with heart failure; I44.7 Left bundle-branch block, unspecified; Z79.01 Long term (current) use of anticoagulants
CPT/HCPCS: 80048; 80053; 83735; 84443; 85025; 85027; 92960; 93005; 93306; 99284; Q9950

== ENCOUNTER 2025-07-23 20:10 | Emergency (ER) | payer OTHER, SELFPAY ==
[2025-07-23 20:16] VITALS: BP 100/57
[2025-07-23 21:40] VITALS: BP 114/56
[2025-07-23 21:41] VITALS: BMI 29.3
[2025-07-23 23:27] VITALS: BP 117/50
[2025-07-23] MEDS: TYLENOL 1000 MG PO (23:43)
[2025-07-23] MEDS: DILAUDID 0.5 MG IV (23:44)
[2025-07-23 23:52] LABS: Hematocrit 36.5 % (37.0-47.0); Hemoglobin 12.4 g/dL (12.0-16.0); Mean Corp Hgb Conc. 34.0 g/dL (33.0-37.0); Mean Corpuscular Volume 85.7 fL (81.0-99.0); Platelet Count 263 10^3/uL (130-400); Red Cell Dist. Width 12.9 % (11.5-14.5)
[2025-07-24] VITALS: BP 111/63
[2025-07-24 00:04] LABS: INR 1.29; PT 16.6 Sec (11.4-14.6)
[2025-07-24 00:05] LABS: APTT 39.0 Sec (23.4-35.0)
[2025-07-24 00:12] LABS: Blood Urea Nitrogen 12 mg/dl (7-17); Calcium 9.3 mg/dl (8.4-10.2); Carbon Dioxide 27 mmol/L (22-30); Chloride 99 mmol/L (98-107); Estimated Creatinine Clearance 68 ml/min; Glucose 110 mg/dl (70-99); Potassium 4.3 mmol/L (3.5-5.1); Sodium 131 mmol/L (135-145); eGFR > 60.00
[2025-07-24 01:00] VITALS: BP 122/61
--- NOTE | 2025-07-24 01:21 | ED.GENMED ---
History of Present Illness
General
Chief Complaint: Fall
Source: patient and family
Exam Limitations: none
Time Seen by Provider: 07/23/25 22:33
Nursing documentation reviewed up to this point in time: agreed with
History of Present Illness
History of Present Illness:
Patient with history of atrial fibrillation on Pradaxa, presents to ED secondary to persistent left buttock pain with bruising, after she lost balance and fell backwards hitting the shower door and landing on the floor. This occurred early this
afternoon, when she got up from toilet and experienced brief numbness sensation in her legs, which caused her to fall. Denies any other injuries. Denies headache. Denies neck pain. Denies loss of sensation or weakness. Patient reports minimal
pain at rest, but worse with any movement.
Past History
Past History
ED Past Medical History: Arrthythmia (Atrial fib), Hypercholesterolemia and Hypothyroidism
ED Past Surgical History: None
Patient has exhibited threatening behavior?: No
PSI?: No
Social History
Tobacco: Non-smoker
Alcohol: Occasional
Personal:
Living: with family
Family History
Family History: Unable to obtain
Review of Systems
Review of Systems
Allergies reviewed?: Yes
All Other Systems: ROS reviewed and negative except as documented in HPI and ROS
Constitutional: Reports no symptoms; Denies fever
Cardiac: Reports no symptoms; Denies syncope
ABD/GI: Reports no symptoms; Denies nausea or vomiting
Musculoskeletal: Reports other (Buttock pain with bruising)
Skin: Reports no symptoms
Neurological: Reports no symptoms; Denies headache, weakness or numbness
Phy Exam
Physical Exam
Physical Exam:
Physical Exam
General: mild painful distress, not acutely ill. afebrile
Head: nc/at. eomi
Neck: supple. normal range of motion.
Heart: s1/s2 regular rate and rhythm
Lungs: no acute respiratory distress. clear bilaterally
Abdomen: normal bowel sounds. not tender.
Neuro: alert and oriented x 3. no focal neurological deficits
Skin: an approx 6cm x 8cm area of ecchymosis/swelling/tenderness noted over left buttock, without open wound
Psychiatric: well kept. interactive and cooperative
Extremities: no edema. hip nontender with normal ROM
Course
Orders/Labs/Results
Orders:
Orders
07/23/25 23:10
CT Pelvis W/o Iv Contrast Urgent
Comment:
Reason For Exam: left buttock trauma w hematoma
07/23/25 23:12
Acetaminophen [Tylenol] 1,000 mg PO NOW STA
HYDROmorphone [Dilaudid] 0.5 mg IV NOW STA
07/23/25 23:39
Basic Metabolic Panel Urgent
Complete Blood Count/No Diff Urgent
Magnesium Urgent
Comment: ADDED
PTT Urgent
Prothrombin Time Urgent
Serum Osmolality Urgent
Comment: ADDED
07/24/25 00:19
Add On- LAB Urgent
Tests Added?: Magnesium, serum osm
Abnormal Lab Results
07/23/25
23:39
Hct 36.5 L %
(37.0-47.0)
PT 16.6 H Sec
(11.4-14.6)
APTT 39.0 H Sec
(23.4-35.0)
Sodium 131 L mmol/L
(135-145)
Glucose 110 H mg/dl
(70-99)
07/23/25 23:39
07/23/25 23:39
Vital Signs
Initial and Last Documented VS:
Initial Vital Signs
Temp Pulse Resp BP Pulse Ox
98 F 81 18 100/57 98
07/23/25 20:16 07/23/25 20:16 07/23/25 20:16 07/23/25 20:16 07/23/25 20:16
Last Documented Vital Signs
Temp Pulse Resp BP Pulse Ox
97.9 F 69 19 122/61 97
07/23/25 21:40 07/24/25 01:47 07/24/25 01:47 07/24/25 01:00 07/24/25 01:30
MDM/Problems Addressed
MDM/Problems Addressed:
CT pelvis report reviewed and discussed with patient and family. After administration of pain medication, patient is able to ambulate with use of walker, independently, without assistance. As such, patient will be discharged home with
recommendation to follow-up PCP as outpatient. Patient will begin short course of pain medication to be used, as needed. Patient states that she already has a walker at home, which she can continue to utilize.
*Pulse Oximetry
SaO2: 97
Oxygen Mode of Delivery: Room air
Patient hypoxic: no
*Critical Care Note
Total Time (30-74mins, 75-104mins- exclusive of procedures): Not Applicable
ED Attending Note
-
Portions of this chart may have been created with voice recognition software.� Occasional wrong word or��sound alike� substitutions may have occurred due to the inherent limitations of voice recognition software.
Discharge Plan
Departure
Patient Disposition: Home (Routine Discharge)
Date of Disposition: 07/24/25
Time of Disposition: 01:40
Patient with high blood pressure during this ER visit?: No
Condition: Fair
Discharge Problem:
Hyponatremia, Contusion of buttock
Instructions: Contusion (DC), Hyponatremia
Prescriptions:
New
oxycodone-acetaminophen [Percocet] 5-325 mg Tablet
1 tab PO Q6HPRN PRN (Reason: pain) Qty: 10 0RF
No Action
venlafaxine [Effexor XR] 150 MG capsule,extended release 24hr
150 mg PO BID
spironolactone 25 mg Tablet
12.5 mg PO DAILY Qty: 90 5RF
levothyroxine 100 mcg Tablet
100 mcg PO DAILY
furosemide 20 mg Tablet
20 mg PO DAILY
dabigatran etexilate 150 mg Capsule
150 mg PO BID
Jardiance 10 mg Tablet
10 mg PO DAILY
sacubitril-valsartan [Entresto] 24-26 mg Tablet
1 tab PO BID
amiodarone 200 mg tablet
200 mg PO DAILY Qty: 30 0RF
carvedilol 6.25 mg tablet
3.125 mg PO BID
Referrals:
Deon Fischer DO [Family Provider, Internal Medicine]
Activity Restrictions/Additional Instructions:
As discussed, please follow-up with your primary condition for reevaluation next week. Please consider return to ED with worsening symptoms. Your prescription has been sent electronically to the [facility] pharmacy in [place].
Interventions
Interventions:
*Risk Screen - Suicide Last Done: 07/23/25 20:20
*General Assessment Last Done: 07/23/25 20:20
*Neglect/Abuse Screening Last Done: 07/23/25 20:20
*ED- Fall Risk Assessment Last Done: 07/24/25 01:53
*ED COVID-19 Vaccine History Last Done: 07/23/25 20:20
*ED Influenza Vaccine History Last Done: 07/23/25 20:20
*Nursing Disposition Last Done: 07/24/25 01:53
ED-Musculoskeletal Assessment Last Done: 07/23/25 21:43
ED- Neurological Assessment Last Done: 07/23/25 21:43
ED-Skin Assessment Last Done: 07/23/25 21:43
Discharge Date and Time
Discharge Date/Time: 07/24/25 02:08
Print Language: GEORGIAN
[2025-07-24 01:34] LABS: Magnesium 2.0 mg/dl (1.6-2.3)
== END 2025-07-24 02:08 | disposition home or self-care (01) ==
LOC: EMR 20:10
PROVIDERS: EMERGENCY PHYSICIAN Emergency Medicine; FAMILY PHYSICIAN Internal Medicine
DX: S30.0XXA Contusion of lower back and pelvis, initial encounter (principal); W01.198A Fall on same level from slipping, tripping and stumbling with subsequent striking against other object, initial encounter; E78.00 Pure hypercholesterolemia, unspecified; E87.1 Hypo-osmolality and hyponatremia; E03.9 Hypothyroidism, unspecified; I48.91 Unspecified atrial fibrillation; Z79.01 Long term (current) use of anticoagulants
CPT/HCPCS: 96374; 99284; 72192; 80048; 83735; 83930; 85027; 85610; 85730

== ENCOUNTER → 2025-09-21 16:16 | Outpatient (REF) | payer OTHER, SELFPAY | LOC: WDC 16:16 | PROVIDERS: ATTENDING PHYSICIAN Internal Medicine | DX: Z12.31 Encounter for screening mammogram for malignant neoplasm of breast (principal) | CPT/HCPCS: 77063; 77067 ==